=== PATIENT | male | born 1965 | race Caucasian/White ===

== ENCOUNTER 2019-12-24 22:53 | Emergency (ER) | payer SELFPAY ==
[~2019-12-24] VITALS: Ht 152.4 cm; Wt 54.4 kg
[2019-12-24 22:56] VITALS: BP 157/84
--- NOTE | 2019-12-24 22:56 | NUR ---
PT AMBULATED TO CHAIR C WITH STEADY GAIT, IN POLICE CUSTODY.
--- NOTE | 2019-12-24 23:27 | NUR ---
pt discharged with VSS. d/c to [place] [employer] [facility] [employer] [facility] officer [place] [id number] custody.
== END 2019-12-24 23:28 | disposition home or self-care (01) ==
LOC: MED 22:53
DX: Z02.89 Encounter for other administrative examinations (principal)
CPT/HCPCS: 99283